=== PATIENT | female | born 1950 | race Caucasian/White ===

== ENCOUNTER → 2016-11-03 | Outpatient (CLI) | payer MEDICARE, OTHER ==
[~2016-11-03] MED LIST: ASPIRIN81 M1 PO; CALCIUM500 M3 PO; GLIPIZIDE10 MG PO; HEARTBURN RELIE75 M1 PO; HYDROCHLOROTHIA25 MG PO; LISINOPRIL-HCT1 EACH PO; LOVASTATIN10 MG PO; MELOXICAM15 MG PO; METFORMIN HCL500 MG PO; NAPROSYN500 MG PO; NAPROXEN500 MG PO; PRILOSEC40 MG PO; TRAMADOL HCL50 MG PO; VITAMIN B6100 MG PO; VITAMIN E; VITAMIN E400 UNIT PO; ZITHROMAX250 MG PO; ZOFRAN ODT4 MG PO
== END | disposition home or self-care (01) ==
LOC: CDC 15:24
DX: R94.31 Abnormal electrocardiogram [ECG] [EKG] (principal); C50.912 Malignant neoplasm of unspecified site of left female breast
CPT/HCPCS: 93000

== ENCOUNTER 2016-12-01 05:24 | Day surgery (SDC) | payer OTHER ==
[~2016-12-01] VITALS: Ht 157.5 cm; Wt 83.1 kg
[~2016-12-01 05:24] MED LIST changes: +LO-DOSE ASPIRIN81 M1 PO; +MOBIC15 MG PO; +OMEPRAZOLE40 M1 PO
[2016-12-01 06:03] VITALS: BP 157/73
[2016-12-01 06:39] LABS: POINT-OF-CARE METER ID UU14174212
[2016-12-01 11:35] LABS: POINT-OF-CARE METER ID UU13113675
[2016-12-01 13:05] VITALS: BP 150/67
[2016-12-01 14:08] VITALS: BP 160/74
[2016-12-01 14:48] VITALS: BP 160/74
== END 2016-12-01 15:11 | disposition home or self-care (01) ==
LOC: SDC 05:24
PROVIDERS: Surgery Surgical Oncology
DX: C50.112 Malignant neoplasm of central portion of left female breast (principal); Z17.0 Estrogen receptor positive status [ER+]; E11.9 Type 2 diabetes mellitus without complications; Z80.3 Family history of malignant neoplasm of breast; I10 Essential (primary) hypertension; Z79.82 Long term (current) use of aspirin; K21.9 Gastro-esophageal reflux disease without esophagitis; E78.5 Hyperlipidemia, unspecified; Z82.3 Family history of stroke; Z83.3 Family history of diabetes mellitus; Z80.41 Family history of malignant neoplasm of ovary; Z82.5 Family history of asthma and other chronic lower respiratory diseases; Z82.49 Family history of ischemic heart disease and other diseases of the circulatory system; Z88.2 Allergy status to sulfonamides; Z88.8 Allergy status to other drugs, medicaments and biological substances; Z91.09 Other allergy status, other than to drugs and biological substances
CPT/HCPCS: 82948; 88305; 88307; 88331; J0131; J0330; J0690; J1170; J2250; J2405; J2765; S0020

== ENCOUNTER 2017-03-10 09:01 | Emergency (ER) | payer OTHER ==
[~2017-03-10] VITALS: Ht 162.6 cm; Wt 83.0 kg
[2017-03-10 09:36] LABS: HEMATOCRIT 34.6 % (36.0-46.0); MCH 28.5 PG (29.0-34.0); MCHC 33.2 G/DL (30.0-36.0); MCV 85.6 FL (83-99); MEAN PLAT.VOLUME 9.6 uM^3 (9.5-12.4); PLATELET COUNT 184 K/uL (156-360); RBC DIS.WIDTH-CV 13.7 % (11.8-14.6); RED BLOOD COUNT 4.04 M/uL (3.80-5.20); WHITE BLOOD COUNT 7.9 K/uL (4.1-10.2)
[2017-03-10 09:46] LABS: CHLORIDE 99 mEq/L (99-109); POTASSIUM 4.2 mEq/L (3.7-5.4); SODIUM 137 mEq/L (136-147)
[2017-03-10 09:48] LABS: GLUCOSE 143 mg/dL (70-99)
[2017-03-10 09:49] LABS: ANION GAP 11 MEQ/L (2-14)
[2017-03-10 09:50] LABS: TOTAL BILIRUBIN 0.7 mg/dL (0.0-1.0)
[2017-03-10 09:51] LABS: ALKALINE PHOSPHATASE 65 IU/L (3-129)
[2017-03-10 09:52] LABS: GFR ESTIMATE (CALCULATED) 52 mL/min/
[2017-03-10 09:53] LABS: UREA NITROGEN (BUN) 13 mg/dL (9-23)
[2017-03-10 10:41] LABS: ADD MIUA? NO; BILIRUBIN NEGATIVE; BLOOD NEGATIVE; COLOR YELLOW ((YELLOW)); GLUCOSE (STRIP) NEGATIVE; KETONES NEGATIVE; LEUKOCYTES NEGATIVE; NITRITE NEGATIVE; PROTEIN (STRIP) NEGATIVE; UCUL ADDED? NO; UROBILINOGEN 0.2 MG/DL (0.2-1.0)
[2017-03-10] MEDS ORDERED: CIPRO500 MG PO (12:12)
[2017-03-10] MEDS ORDERED: FLAGYL500 MG PO (12:12)
[2017-03-10 13:05] VITALS: BP 159/72
== END 2017-03-10 13:08 | disposition home or self-care (01) ==
LOC: EME 09:01
DX: K57.32 Diverticulitis of large intestine without perforation or abscess without bleeding (principal); R30.0 Dysuria; I10 Essential (primary) hypertension; E78.5 Hyperlipidemia, unspecified; E11.9 Type 2 diabetes mellitus without complications; Z79.84 Long term (current) use of oral hypoglycemic drugs; Z79.82 Long term (current) use of aspirin; Z90.49 Acquired absence of other specified parts of digestive tract; Z85.3 Personal history of malignant neoplasm of breast
CPT/HCPCS: 74177; 80053; 81003; 85027; 99281; 99283

== ENCOUNTER → 2017-06-21 | Outpatient (CLI) | payer OTHER ==
[~2017-06-21] MED LIST changes: +AROMASIN25 MG PO; +CIPRO500 MG PO; +CITRACAL + D M1 EACH PO; +FLAGYL500 MG PO
== END | disposition home or self-care (01) ==
LOC: PICC 08:54
DX: K57.92 Diverticulitis of intestine, part unspecified, without perforation or abscess without bleeding (principal)
CPT/HCPCS: C1753

== ENCOUNTER → 2017-07-29 | Outpatient (CLI) | payer OTHER ==
[~2017-07-29] VITALS: Ht 161.3 cm; Wt 82.1 kg
[2017-07-29 07:32] LABS: POINT-OF-CARE METER ID UU14107333
[2017-07-29 09:10] LABS: POINT-OF-CARE METER ID UU13113819; POINT-OF-CARE USER ID AHSRSCGAB
== END | disposition home or self-care (01) ==
LOC: AMB 06:50
PROVIDERS: Internal Medicine
DX: K57.30 Diverticulosis of large intestine without perforation or abscess without bleeding (principal); K63.5 Polyp of colon; D12.8 Benign neoplasm of rectum; D12.2 Benign neoplasm of ascending colon; K64.8 Other hemorrhoids; G89.29 Other chronic pain; R10.12 Left upper quadrant pain; M25.572 Pain in left ankle and joints of left foot; R74.8 Abnormal levels of other serum enzymes; Z85.3 Personal history of malignant neoplasm of breast; Z79.811 Long term (current) use of aromatase inhibitors; E11.9 Type 2 diabetes mellitus without complications; K21.9 Gastro-esophageal reflux disease without esophagitis; K76.0 Fatty (change of) liver, not elsewhere classified; E78.5 Hyperlipidemia, unspecified; I10 Essential (primary) hypertension; Z79.84 Long term (current) use of oral hypoglycemic drugs; Z90.49 Acquired absence of other specified parts of digestive tract; Z90.710 Acquired absence of both cervix and uterus; Z90.722 Acquired absence of ovaries, bilateral; Z83.79 Family history of other diseases of the digestive system; Z80.3 Family history of malignant neoplasm of breast; Z82.3 Family history of stroke; Z83.3 Family history of diabetes mellitus; Z80.41 Family history of malignant neoplasm of ovary; Z82.5 Family history of asthma and other chronic lower respiratory diseases; Z82.49 Family history of ischemic heart disease and other diseases of the circulatory system; Z79.82 Long term (current) use of aspirin; Z88.2 Allergy status to sulfonamides; Z88.1 Allergy status to other antibiotic agents; Z91.09 Other allergy status, other than to drugs and biological substances; Z88.8 Allergy status to other drugs, medicaments and biological substances
CPT/HCPCS: 82948; 88305; 93005

== ENCOUNTER 2018-01-29 09:10 | Emergency (ER) | payer OTHER ==
[~2018-01-29] VITALS: Ht 157.5 cm; Wt 81.8 kg
[2018-01-29] MEDS ORDERED: KEFLEX500 MG PO (09:51)
[2018-01-29 10:22] VITALS: BP 161/78
== END 2018-01-29 10:23 | disposition home or self-care (01) ==
LOC: EME 09:10
DX: H66.012 Acute suppurative otitis media with spontaneous rupture of ear drum, left ear (principal); Z88.2 Allergy status to sulfonamides; Z88.8 Allergy status to other drugs, medicaments and biological substances
CPT/HCPCS: 99281; 99284